=== PATIENT | female | born 1930 | race Caucasian/White ===

== ENCOUNTER 2019-01-02 21:45 | Inpatient (IN) ==
[2019-01-02 22:13] LABS: Basophils % 0.3 % (0.0-0.8); Hematocrit 34.9 VOL% (35.7-47.0); Hemoglobin 11.5 GM/DL (12.0-16.0); Immature Granulocytes % 0.8 %; Immature Granulocytes Absolute 0.06 #; Lymphocytes # 0.4 10*3/uL (1.4-4.0); Mean Corpuscular Volume 93.1 FL (87-102); Monocytes % 1.8 % (1.7-12.7); Neutrophils % 92.1 % (38.7-73.9); Platelet Count 128 T/CUMM (130-400); Red Blood Count 3.75 MC/CUMM (3.8-5.5); Red Cell Distribution Width 13.2 % (9.3-17.3); White Blood Count 7.7 T/CUMM (4-12)
[2019-01-02 22:19] LABS: PT Patient Result 10.4 SECS (9.6-12.2); Partial Thromboplastin Time 23.7 SECS (20.8-36.0)
[2019-01-02 22:27] LABS: Alanine Aminotransferase 484 U/L (13-56); Albumin 3.5 G/DL (3.4-5.0); Alkaline Phosphatase 334 U/L (45-117); Aspartate Amino Transferase 635 U/L (0-37); Blood Urea Nitrogen 27 MG/DL (7-18); Calcium 8.6 MG/DL (8.5-10.1); Estimated Glom Filtration Rate 45 ML/MIN; Glucose 143 MG/DL (74-106); Osmolality,Calculated 281.7 MOS/KG (273-304); Total Protein 6.9 G/DL (6.4-8.3); Troponin I 0.041 NG/ML (0.00-0.045)
[2019-01-02 22:40] LABS: Band Neutrophils 10 % (0-10); Lymphocytes 7 % (20-55); Segmented Neutrophils 80 % (50-85)
[2019-01-02 22:41] LABS: Reactive Lymphocytes 1+
[2019-01-02 22:42] LABS: Hypochromasia 1+; Platelet Estimate Normal; Total Cells Counted 100
[2019-01-02 22:55] LABS: Apearance,Urine CLOUDY (Clear); Bacteria,Urine Many /HPF (Few); Bilirubin,Urine Negative (Negative); Blood, Urine Small mg/dL (Negative); Glucose,Urine (UA) Negative (Negative); Ketones,Urine Negative (Negative); Mucus,Urine Occasional /LPF (Occasional); Nitrite,Urine Negative (Negative); Protein,Urine 30 MG/DL; RBC,Urine 12 /HPF (0-4); Squamous Epithelial Cell,Urine Occasional /HPF (0-10); Urine Color Amber (Yellow); Urine Specific Gravity 1.017 (1.001-1.035); WBC,Urine 607 /HPF (0-6)
[2019-01-02 22:58] LABS: Barbiturates Screen,Urine Negative (Negative); Benzodiazepines Screen,Urine Negative (Negative); Cannabinoid Screen,Urine Negative (Negative); Opiate Screen,Urine Negative (Negative); Phencyclidine Screen,Urine Negative (Negative)
[2019-01-03] MEDS ORDERED: LEVOFLOXACIN INJ 750 MG in PREMIX 1 EACH IV STA (00:30)
[2019-01-03] MEDS ORDERED: ONDANSETRON 4 MG/2 ML VIAL IV PRN (01:10)
[2019-01-03] MEDS ORDERED: MORPHINE 4 MG/1 ML VIAL IV PRN (01:10)
[2019-01-03] MEDS ORDERED: PROMETHAZINE 25 MG/1 ML VIAL IM PRN (01:10)
[2019-01-03] MEDS ORDERED: NICOTINE 21 MG/24 HR PATCH TRANSDERM PRN (01:10)
[2019-01-03 02:21] LABS: Risk Ratio 2.45; VLDL CHOLESTEROL 13.2 MG/DL
[2019-01-03] MEDS: metroNIDAZOLE INJ 500 MG in PREMIX 1 EACH IV SCH ×3 (02:41→17:41)
[2019-01-03] MEDS: SODIUM CHLORIDE 0.9% 1,000 ML IV SCH ×3 (02:41→10:53)
[2019-01-03 05:12] LABS: Basophils % 0.1 % (0.0-0.8); Immature Granulocytes % 0.4 %; Immature Granulocytes Absolute 0.05 #; Lymphocytes # 0.4 10*3/uL (1.4-4.0); Lymphocytes % 3.3 % (21.3-54.2); Mean Corpuscular HGB Conc 32.3 GM/DL (32-36); Mean Corpuscular Volume 92.8 FL (87-102); Mean Platelet Volume 9.3 FL (9.6-12.0); Monocytes % 4.5 % (1.7-12.7); Neutrophils % 91.7 % (38.7-73.9); Platelet Count 110 T/CUMM (130-400); Red Blood Count 3.34 MC/CUMM (3.8-5.5); Red Cell Distribution Width 13.2 % (9.3-17.3); White Blood Count 11.4 T/CUMM (4-12)
[2019-01-03 05:34] LABS: Albumin 2.9 G/DL (3.4-5.0); Bilirubin,Total 2.8 MG/DL (0.2-1.0); Calcium 8.4 MG/DL (8.5-10.1); Osmolality,Calculated 282.5 MOS/KG (273-304); Total Protein 5.7 G/DL (6.4-8.3)
[2019-01-03 05:39] LABS: Band Neutrophils 2 % (0-10); Hypochromasia 1+; Lymphocytes 8 % (20-55); Platelet Estimate Decreased; Segmented Neutrophils 84 % (50-85); Total Cells Counted 100
[2019-01-03] MEDS: FAMOTIDINE 20 MG/2 ML VIAL IV SCH (08:17)
[2019-01-03] MEDS: ACETAMINOPHEN 325 MG TABLET PO PRN (10:52)
[2019-01-03] MEDS: DEXT 5% NACL 0.45% KCL 20 MEQ 20 MEQ/1,000 ML BAG IV SCH ×2 (14:10→21:52)
[2019-01-03] MEDS ORDERED: ZALEPLON 5 MG CAPSULE PO ONE (21:00)
[2019-01-04] MEDS ORDERED: LORazepam 2 MG/1 ML VIAL IV ONE ×2 (00:49→05:39)
[2019-01-04] MEDS: LEVOFLOXACIN INJ 500 MG in PREMIX 1 EACH IV SCH (01:00)
[2019-01-04] MEDS: metroNIDAZOLE INJ 500 MG in PREMIX 1 EACH IV SCH ×2 (02:16→09:58)
[2019-01-04 05:17] LABS: Basophils % 0.3 % (0.0-0.8); Hematocrit 32.3 VOL% (35.7-47.0); Hemoglobin 10.4 GM/DL (12.0-16.0); Immature Granulocytes % 0.7 %; Immature Granulocytes Absolute 0.05 #; Lymphocytes # 0.3 10*3/uL (1.4-4.0); Lymphocytes % 4.3 % (21.3-54.2); Mean Corpuscular HGB Conc 32.2 GM/DL (32-36); Mean Corpuscular Volume 93.4 FL (87-102); Mean Platelet Volume 9.3 FL (9.6-12.0); Monocytes % 6.5 % (1.7-12.7); Neutrophils % 88.2 % (38.7-73.9); Platelet Count 116 T/CUMM (130-400); Red Blood Count 3.46 MC/CUMM (3.8-5.5); Red Cell Distribution Width 13.4 % (9.3-17.3); White Blood Count 7.4 T/CUMM (4-12)
[2019-01-04 05:39] LABS: Band Neutrophils 1 % (0-10); Hypochromasia 1+; Lymphocytes 3 % (20-55); Platelet Estimate Decreased; Segmented Neutrophils 91 % (50-85); Total Cells Counted 100
[2019-01-04 05:51] LABS: Albumin 2.9 G/DL (3.4-5.0); Bilirubin,Total 2.1 MG/DL (0.2-1.0); Calcium 8.3 MG/DL (8.5-10.1); Total Protein 5.7 G/DL (6.4-8.3)
[2019-01-04] MEDS: DEXT 5% NACL 0.45% KCL 20 MEQ 20 MEQ/1,000 ML BAG IV SCH ×2 (08:13→16:03)
[2019-01-04] MEDS: FAMOTIDINE 20 MG/2 ML VIAL IV SCH (09:57)
[2019-01-04 10:13] LABS: Apearance,Urine CLOUDY (Clear); Bacteria,Urine Few /HPF (Few); Bilirubin,Urine Negative (Negative); Blood, Urine Moderate mg/dL (Negative); Glucose,Urine (UA) Negative (Negative); Ketones,Urine Negative (Negative); Nitrite,Urine Negative (Negative); Protein,Urine 30 MG/DL; RBC,Urine 33 /HPF (0-4); Squamous Epithelial Cell,Urine Occasional /HPF (0-10); Urine Color Amber (Yellow); Urine Specific Gravity 1.012 (1.001-1.035); Urine Urobilinogen < 2.0 EU/DL (0.2-1.0); WBC,Urine 574 /HPF (0-6)
[2019-01-04] MEDS ORDERED: OLANZapine 10 MG VIAL IM ONE (18:00)
[2019-01-05] MEDS: LEVOFLOXACIN INJ 500 MG in PREMIX 1 EACH IV SCH (01:00)
[2019-01-05 05:22] LABS: Basophils % 0.2 % (0.0-0.8); Eosinophils % 0.4 % (0.00-10.9); Hematocrit 31.7 VOL% (35.7-47.0); Hemoglobin 10.2 GM/DL (12.0-16.0); Immature Granulocytes % 1.1 %; Immature Granulocytes Absolute 0.05 #; Lymphocytes # 0.4 10*3/uL (1.4-4.0); Lymphocytes % 8.4 % (21.3-54.2); Mean Corpuscular HGB Conc 32.2 GM/DL (32-36); Mean Corpuscular Volume 92.7 FL (87-102); Mean Platelet Volume 9.4 FL (9.6-12.0); Neutrophils % 81.9 % (38.7-73.9); Platelet Count 131 T/CUMM (130-400); Red Blood Count 3.42 MC/CUMM (3.8-5.5); Red Cell Distribution Width 13.5 % (9.3-17.3); White Blood Count 4.6 T/CUMM (4-12)
[2019-01-05 05:45] LABS: Albumin 2.6 G/DL (3.4-5.0); Bilirubin,Total 0.9 MG/DL (0.2-1.0); Calcium 8.5 MG/DL (8.5-10.1); Osmolality,Calculated 271.8 MOS/KG (273-304); Total Protein 5.4 G/DL (6.4-8.3)
[2019-01-05] MEDS: FAMOTIDINE 20 MG/2 ML VIAL IV SCH (08:25)
[2019-01-05] MEDS: DEXT 5% NACL 0.45% KCL 20 MEQ 20 MEQ/1,000 ML BAG IV SCH ×2 (08:54→21:09)
[2019-01-05] MEDS: ACETAMINOPHEN 325 MG TABLET PO PRN (09:01)
[2019-01-05] MEDS: AMITRIPTYLINE 10 MG TABLET PO SCH (21:07)
[2019-01-05] MEDS: GABAPENTIN 300 MG CAPSULE PO SCH (21:07)
[2019-01-05] MEDS: DONEPEZIL 10 MG TABLET PO SCH (21:07)
[2019-01-06] MEDS: LEVOFLOXACIN INJ 500 MG in PREMIX 1 EACH IV SCH (01:00)
[2019-01-06 05:03] LABS: Basophils % 0.3 % (0.0-0.8); Eosinophils % 0.9 % (0.00-10.9); Hematocrit 32.9 VOL% (35.7-47.0); Hemoglobin 10.6 GM/DL (12.0-16.0); Immature Granulocytes % 0.9 %; Immature Granulocytes Absolute 0.03 #; Lymphocytes # 0.6 10*3/uL (1.4-4.0); Lymphocytes % 17.6 % (21.3-54.2); Mean Corpuscular HGB Conc 32.2 GM/DL (32-36); Mean Corpuscular Volume 92.4 FL (87-102); Mean Platelet Volume 9.4 FL (9.6-12.0); Neutrophils % 69.3 % (38.7-73.9); Platelet Count 141 T/CUMM (130-400); Red Blood Count 3.56 MC/CUMM (3.8-5.5); Red Cell Distribution Width 13.2 % (9.3-17.3); White Blood Count 3.2 T/CUMM (4-12)
[2019-01-06 05:13] LABS: INR 0.9; PT Patient Result 9.9 SECS (9.6-12.2)
[2019-01-06 05:15] LABS: Albumin 2.6 G/DL (3.4-5.0); Bilirubin,Total 0.5 MG/DL (0.2-1.0); Calcium 8.5 MG/DL (8.5-10.1); Osmolality,Calculated 280.1 MOS/KG (273-304); Total Protein 5.4 G/DL (6.4-8.3)
[2019-01-06] MEDS: LACTATED RINGERS 1,000 ML IV SCH ×2 (08:02→12:45)
[2019-01-06] MEDS: FLUTICASONE 50 MCG NASAL SPRAY 16 GM BOTTLE BOTH NARES SCH (08:07)
[2019-01-06] MEDS: FAMOTIDINE 20 MG/2 ML VIAL IV SCH (08:08)
[2019-01-06] MEDS: MONTELUKAST 10 MG TABLET PO SCH (08:08)
[2019-01-06] MEDS ORDERED: fentaNYL 100 MCG/2 ML VIAL ONE ×2 (12:56→13:05)
[2019-01-06] MEDS ORDERED: LIDOCAINE 2% 5 ML VIAL ONE (13:05)
[2019-01-06] MEDS ORDERED: ROCURONIUM 100 MG/10 ML VIAL IV ONE (13:05)
[2019-01-06] MEDS ORDERED: propofoL 200 MG/20 ML VIAL IV ONE (13:05)
[2019-01-06] MEDS ORDERED: SUCCINYLCHOLINE 200 MG/10 ML VIAL ONE (13:05)
[2019-01-06] MEDS ORDERED: ONDANSETRON 4 MG/2 ML VIAL ONE (13:05)
[2019-01-06] MEDS ORDERED: PHENYLEPHRINE 1 MG/10 ML SYRINGE IV ONE (13:05)
[2019-01-06] MEDS ORDERED: INDOMETHACIN SUPP 50 MG SUPP RECTAL STA (13:22)
[2019-01-06] MEDS ORDERED: SEVOFLURANE 1 UNIT/15 MINUTE INH ONE (14:12)
[2019-01-06] MEDS: DEXT 5% NACL 0.45% KCL 20 MEQ 20 MEQ/1,000 ML BAG IV SCH (15:11)
[2019-01-06] MEDS: SULFAMETHOX/TRIMETHOPRIM 800-160 MG TABLET PO SCH (21:15)
[2019-01-06] MEDS: DONEPEZIL 10 MG TABLET PO SCH (21:15)
[2019-01-06] MEDS: AMITRIPTYLINE 10 MG TABLET PO SCH (21:15)
[2019-01-06] MEDS: GABAPENTIN 300 MG CAPSULE PO SCH (21:16)
[2019-01-07 06:37] LABS: Basophils % 0.4 % (0.0-0.8); Eosinophils # 0.1 10*3/uL (0.0-0.87); Eosinophils % 1.8 % (0.00-10.9); Hematocrit 32.6 VOL% (35.7-47.0); Hemoglobin 10.5 GM/DL (12.0-16.0); Immature Granulocytes % 1.1 %; Immature Granulocytes Absolute 0.03 #; Lymphocytes # 0.5 10*3/uL (1.4-4.0); Lymphocytes % 15.8 % (21.3-54.2); Mean Corpuscular HGB Conc 32.2 GM/DL (32-36); Mean Corpuscular Volume 92.9 FL (87-102); Mean Platelet Volume 9.2 FL (9.6-12.0); Neutrophils % 67.9 % (38.7-73.9); Platelet Count 135 T/CUMM (130-400); Red Blood Count 3.51 MC/CUMM (3.8-5.5); Red Cell Distribution Width 13.3 % (9.3-17.3); White Blood Count 2.8 T/CUMM (4-12)
[2019-01-07 06:57] LABS: Albumin 2.4 G/DL (3.4-5.0); Bilirubin,Total 0.9 MG/DL (0.2-1.0); Calcium 8.3 MG/DL (8.5-10.1); Osmolality,Calculated 275.5 MOS/KG (273-304); Total Protein 5.3 G/DL (6.4-8.3)
[2019-01-07] MEDS ORDERED: INDOCYANINE GREEN 25 MG VIAL IV ONE (07:50)
[2019-01-07] MEDS: LACTATED RINGERS 1,000 ML IV SCH (08:24)
[2019-01-07] MEDS: ASPIRIN CHEW 81 MG TABLET PO SCH (08:24)
[2019-01-07] MEDS: FAMOTIDINE 20 MG/2 ML VIAL IV SCH (08:24)
[2019-01-07] MEDS: SULFAMETHOX/TRIMETHOPRIM 800-160 MG TABLET PO SCH ×2 (08:24→21:47)
[2019-01-07] MEDS: FLUTICASONE 50 MCG NASAL SPRAY 16 GM BOTTLE BOTH NARES SCH (08:25)
[2019-01-07] MEDS: MONTELUKAST 10 MG TABLET PO SCH (08:25)
[2019-01-07] MEDS ORDERED: TUBERCULIN SKIN TEST 0.1 ML SYRINGE INTRADERM ONE (09:37)
[2019-01-07] MEDS ORDERED: BUPIVACAINE 0.5% 50 ML VIAL ONE (09:56)
[2019-01-07] MEDS ORDERED: LIDOCAINE MPF 1% /EPI 30 ML VIAL ONE (09:56)
[2019-01-07] MEDS ORDERED: TISSUE ADHESIVE 1 EACH APPLICATOR TOP ONE (09:56)
[2019-01-07] MEDS ORDERED: CLINDAMYCIN INJ 900 MG in PREMIX 1 EACH IV ONE (10:00)
[2019-01-07] MEDS ORDERED: LIDOCAINE 2% 5 ML VIAL ONE (12:06)
[2019-01-07] MEDS ORDERED: propofoL 200 MG/20 ML VIAL IV ONE (12:06)
[2019-01-07] MEDS ORDERED: ESMOLOL 100 MG/10 ML VIAL IV ONE (12:07)
[2019-01-07] MEDS ORDERED: ROCURONIUM 100 MG/10 ML VIAL IV ONE (12:07)
[2019-01-07] MEDS ORDERED: fentaNYL 100 MCG/2 ML VIAL ONE (12:07)
[2019-01-07] MEDS ORDERED: ONDANSETRON 4 MG/2 ML VIAL ONE (12:07)
[2019-01-07] MEDS ORDERED: SEVOFLURANE 1 UNIT/15 MINUTE INH ONE (12:07)
[2019-01-07] MEDS ORDERED: NEOSTIGMINE 10 MG/10 ML VIAL ONE (12:07)
[2019-01-07] MEDS ORDERED: GLYCOPYRROLATE 0.4 MG/2 ML VIAL ONE ×2 (12:07)
[2019-01-07] MEDS: DONEPEZIL 10 MG TABLET PO SCH (21:47)
[2019-01-07] MEDS: AMITRIPTYLINE 10 MG TABLET PO SCH (21:47)
[2019-01-07] MEDS: GABAPENTIN 300 MG CAPSULE PO SCH (21:47)
[2019-01-07] MEDS: DEXT 5% NACL 0.45% KCL 20 MEQ 20 MEQ/1,000 ML BAG IV SCH (21:56)
[2019-01-08 04:20] LABS: Basophils % 0.6 % (0.0-0.8); Eosinophils % 0.8 % (0.00-10.9); Hematocrit 30.2 VOL% (35.7-47.0); Hemoglobin 9.8 GM/DL (12.0-16.0); Immature Granulocytes % 0.8 %; Immature Granulocytes Absolute 0.03 #; Lymphocytes # 0.8 10*3/uL (1.4-4.0); Lymphocytes % 21.5 % (21.3-54.2); Mean Corpuscular HGB Conc 32.5 GM/DL (32-36); Mean Corpuscular Volume 91.2 FL (87-102); Mean Platelet Volume 8.9 FL (9.6-12.0); Monocytes % 12.4 % (1.7-12.7); Neutrophils % 63.9 % (38.7-73.9); Platelet Count 136 T/CUMM (130-400); Red Blood Count 3.31 MC/CUMM (3.8-5.5); Red Cell Distribution Width 13.1 % (9.3-17.3); White Blood Count 3.5 T/CUMM (4-12)
[2019-01-08 04:56] LABS: Alanine Aminotransferase 71 U/L (13-56); Albumin 2.2 G/DL (3.4-5.0); Alkaline Phosphatase 130 U/L (45-117); Aspartate Amino Transferase 40 U/L (0-37); Bilirubin,Total < 0.39 MG/DL (0.2-1.0); Blood Urea Nitrogen 7 MG/DL (7-18); Calcium 7.8 MG/DL (8.5-10.1); Estimated Glom Filtration Rate 80 ML/MIN; Glucose 122 MG/DL (74-106); Total Protein 4.9 G/DL (6.4-8.3)
[2019-01-08] MEDS: MONTELUKAST 10 MG TABLET PO SCH (09:18)
[2019-01-08] MEDS: SULFAMETHOX/TRIMETHOPRIM 800-160 MG TABLET PO SCH ×2 (09:18→20:55)
[2019-01-08] MEDS: ASPIRIN CHEW 81 MG TABLET PO SCH (09:19)
[2019-01-08] MEDS: FLUTICASONE 50 MCG NASAL SPRAY 16 GM BOTTLE BOTH NARES SCH (09:21)
[2019-01-08] MEDS: FAMOTIDINE 20 MG/2 ML VIAL IV SCH (09:23)
[2019-01-08] MEDS: LACTATED RINGERS 1,000 ML IV SCH (11:32)
[2019-01-08] MEDS: AMITRIPTYLINE 10 MG TABLET PO SCH (20:55)
[2019-01-08] MEDS: GABAPENTIN 300 MG CAPSULE PO SCH (20:55)
[2019-01-08] MEDS: DONEPEZIL 10 MG TABLET PO SCH (21:00)
[2019-01-09 05:45] LABS: Basophils % 1.1 % (0.0-0.8); Eosinophils # 0.1 10*3/uL (0.0-0.87); Eosinophils % 1.7 % (0.00-10.9); Hemoglobin 9.8 GM/DL (12.0-16.0); Immature Granulocytes % 1.1 %; Immature Granulocytes Absolute 0.04 #; Lymphocytes # 0.6 10*3/uL (1.4-4.0); Lymphocytes % 17.5 % (21.3-54.2); Mean Corpuscular HGB Conc 32.7 GM/DL (32-36); Mean Corpuscular Volume 90.6 FL (87-102); Mean Platelet Volume 9.5 FL (9.6-12.0); Monocytes % 10.5 % (1.7-12.7); Neutrophils % 68.1 % (38.7-73.9); Platelet Count 142 T/CUMM (130-400); Red Blood Count 3.31 MC/CUMM (3.8-5.5); White Blood Count 3.5 T/CUMM (4-12)
[2019-01-09 06:15] LABS: Albumin 2.4 G/DL (3.4-5.0); Bilirubin,Total 0.7 MG/DL (0.2-1.0); Calcium 8.4 MG/DL (8.5-10.1); Total Protein 5.3 G/DL (6.4-8.3)
[2019-01-09] MEDS: FAMOTIDINE 20 MG/2 ML VIAL IV SCH (08:06)
[2019-01-09] MEDS: MONTELUKAST 10 MG TABLET PO SCH (08:06)
[2019-01-09] MEDS: ASPIRIN CHEW 81 MG TABLET PO SCH (08:06)
[2019-01-09] MEDS: SULFAMETHOX/TRIMETHOPRIM 800-160 MG TABLET PO SCH ×2 (08:06→20:17)
[2019-01-09] MEDS: FLUTICASONE 50 MCG NASAL SPRAY 16 GM BOTTLE BOTH NARES SCH (08:11)
[2019-01-09] MEDS: BISACODYL 5 MG TABLET PO SCH (16:27)
[2019-01-09] MEDS: POLYETHYLENE GLYCOL POWDER 17 GM PACK PO SCH (16:28)
[2019-01-09] MEDS: amLODIPine 2.5 MG TABLET PO SCH (16:28)
[2019-01-09] MEDS: AMITRIPTYLINE 10 MG TABLET PO SCH (20:17)
[2019-01-09] MEDS: GABAPENTIN 300 MG CAPSULE PO SCH (20:17)
[2019-01-09] MEDS: DONEPEZIL 10 MG TABLET PO SCH (20:17)
[2019-01-10] MEDS: ACETAMINOPHEN 325 MG TABLET PO PRN ×3 (00:01→21:18)
[2019-01-10] MEDS: SULFAMETHOX/TRIMETHOPRIM 800-160 MG TABLET PO SCH ×2 (10:43→21:17)
[2019-01-10] MEDS: amLODIPine 2.5 MG TABLET PO SCH (10:43)
[2019-01-10] MEDS: BISACODYL 5 MG TABLET PO SCH (10:43)
[2019-01-10] MEDS: MONTELUKAST 10 MG TABLET PO SCH (10:43)
[2019-01-10] MEDS: POLYETHYLENE GLYCOL POWDER 17 GM PACK PO SCH (10:44)
[2019-01-10] MEDS: FAMOTIDINE 20 MG/2 ML VIAL IV SCH (10:44)
[2019-01-10] MEDS: FLUTICASONE 50 MCG NASAL SPRAY 16 GM BOTTLE BOTH NARES SCH (10:59)
[2019-01-10] MEDS: DONEPEZIL 10 MG TABLET PO SCH (21:17)
[2019-01-10] MEDS: GABAPENTIN 300 MG CAPSULE PO SCH (21:18)
[2019-01-10] MEDS: AMITRIPTYLINE 10 MG TABLET PO SCH (21:18)
[2019-01-11 05:21] LABS: Basophils % 1.4 % (0.0-0.8); Hematocrit 30.2 VOL% (35.7-47.0); Hemoglobin 9.9 GM/DL (12.0-16.0); Immature Granulocytes Absolute 0.03 #; Lymphocytes # 0.7 10*3/uL (1.4-4.0); Lymphocytes % 22.5 % (21.3-54.2); Mean Corpuscular HGB Conc 32.8 GM/DL (32-36); Mean Corpuscular Volume 90.1 FL (87-102); Mean Platelet Volume 9.1 FL (9.6-12.0); Monocytes % 11.8 % (1.7-12.7); Neutrophils % 62.3 % (38.7-73.9); Platelet Count 181 T/CUMM (130-400); Red Blood Count 3.35 MC/CUMM (3.8-5.5); White Blood Count 2.9 T/CUMM (4-12)
[2019-01-11 05:45] LABS: Albumin 2.5 G/DL (3.4-5.0); Bilirubin,Total 0.4 MG/DL (0.2-1.0); Calcium 8.4 MG/DL (8.5-10.1); Total Protein 5.4 G/DL (6.4-8.3)
[2019-01-11 07:08] VITALS: BP 145/59
[2019-01-11] MEDS: amLODIPine 2.5 MG TABLET PO SCH (08:45)
[2019-01-11] MEDS: MONTELUKAST 10 MG TABLET PO SCH (08:45)
[2019-01-11] MEDS: FAMOTIDINE 20 MG/2 ML VIAL IV SCH (08:45)
[2019-01-11] MEDS: BISACODYL 5 MG TABLET PO SCH (08:45)
[2019-01-11] MEDS: ASPIRIN CHEW 81 MG TABLET PO SCH (08:45)
[2019-01-11] MEDS: FLUTICASONE 50 MCG NASAL SPRAY 16 GM BOTTLE BOTH NARES SCH (08:46)
[2019-01-11] MEDS: POLYETHYLENE GLYCOL POWDER 17 GM PACK PO SCH (08:46)
== END 2019-01-11 11:20 | DRG 417 ==
LOC: N.ED 21:45 → N.EDINP 01-03 01:10 → SUATTDRO 01-03 01:10 → N.5E 01-03 01:57
PROVIDERS: ADMIT Hospitalist; ATTEND Internal Medicine Geriatric Medicine
PROC: ERCPWSP (ICD-10-PCS; 2019-01-06 11:35)